=== PATIENT | male | born 1980 | race Caucasian/White ===

== ENCOUNTER 2016-09-24 04:42 | Emergency (ER) | payer OTHER ==
[2016-09-24] MEDS ORDERED: PENICILLIN G BENZATHINE 1,200,000 UNIT/2 ML PFS IM ONE (04:48)
[2016-09-24] MEDS ORDERED: DEXAMETHASONE SOD PHOSPHATE 10 MG/1 ML VIAL IM ONE (04:48)
--- NOTE | 2016-09-24 04:52 | PDOC ---
History of Present Illness - General Chief Complaint: Pain, Acute Stated Complaint: STREPT THROAT Time Seen by Provider: 09/24/16 04:47 History Source: Patient Exam Limitations: No Limitations - History of Present Illness Initial Comments: 09/24/16 04:49 This is a 36-year-old male who comes in complaining of strep throat. Patient's has had strep throat in the past with similar symptoms. Patient complaining of sore throat and fevers and swollen lymph nodes. PAST MEDICAL HISTORY: Strep pharyngitis PAST SURGICAL HISTORY: no significant history FAMILY HISTORY: no pertinant history SOCIAL HISTORY: Pt lives with family and is employed. MEDICATIONS: reviewed ALLERGIES: As per nursing notes Review of Systems General: No fevers or chills, no weakness, no weight loss HEENT: No change in vision. +sore throat,. No ear pain CardioVascular: No chest pain or shortness of breath Respiratory:No cough, or wheezing. Gastrointestinal: no nausea, vomitting, diarrhea or constipation, No rectal bleeding Genitourinary: No dysuria, hematuria, or frequency Musculoskeletal: No joint or muscle pain or swelling Neurologic: No headache, vertigo, dizziness or loss of consciousness Psychiatric: nor depression Skin: No rashes or easy bruising Endocrine: no increased thirst or abnormal weight change Allergic: no skin or latex allergy All other systems reviewed and normal GENERAL: The patient is awake, alert, and fully oriented, in no acute distress. HEAD: Normal with no signs of trauma. THROAT: Tonsils are enlarged with exudate and there is bilateral submandibular lymphadenopathy. EYES: Pupils equal, round and reactive to light, extraocular movements intact, sclera anicteric, conjunctiva clear. EXTREMITIES: Normal range of motion, no edema. NEUROLOGICAL: Normal speech, normal gait. PSYCH: Normal mood, normal affect. SKIN: Warm, Dry, normal turgor, no rashes or lesions noted. Assessment and plan: This is a 36-year-old male who comes in with sore throat, fever and lymphadenopathy consistent with strep throat. Patient given Bicillin L -A and Decadron and discharged will follow-up with his doctor as needed [place] Past History - Past Medical History Allergies/Adverse Reactions: Allergies Allergy/AdvReac Type Severity Reaction Status Date / Time No Known Allergies Allergy Verified 09/24/16 04:43 Home Medications: Ambulatory Orders NK [No Known Home Medication] 09/24/16 *DC/Admit/Observation/Transfer Diagnosis at time of Disposition: Acute streptococcal pharyngitis - Discharge Dispostion Disposition: HOME Condition at time of disposition: Stable Admit: No - Patient Instructions Additional Instructions: Tylenol or Motrin as needed for pain and fevers.. You were given antibiotics that will fully treat the strep infection. U do not need to take any more antibiotics. Return to the emergency department immediately with ANY new, persistent or worsening symptoms. Continue any medications as previously prescribed by your physician. You should follow up with your primary doctor as soon as possible regarding today's emergency department visit. . Please make sure your doctor reviews the results of your emergency evaluation. Thank you for coming to the Emergency Department today for your care. It was a pleasure to see you today. Please note that your evaluation is INCOMPLETE until you follow-up with your doctor.
[2016-09-24 04:56] VITALS: BP 121/83; PULSE 98; TEMP 99.6; BMI 28.0
== END 2016-09-24 04:59 | disposition home or self-care (01) ==
LOC: FER 04:42
PROC: 3E023GC Introduction of Other Therapeutic Substance into Muscle, Percutaneous Approach (ICD-10-PCS; principal; 2016-09-24)
PROC: 3E02329 Introduction of Other Anti-infective into Muscle, Percutaneous Approach (ICD-10-PCS; 2016-09-24)
DX: J02.0 Streptococcal pharyngitis (principal)
CPT/HCPCS: 99281-25